=== PATIENT | male | born 1950 | race Caucasian/White ===

== ENCOUNTER 2022-04-11 10:59 | Emergency (ER) | payer MEDICARE, MEDICAID ==
[~2022-04-11] VITALS: Ht 167.6 cm; Wt 60.9 kg
[2022-04-11 11:57] LABS: BASOPHILS # (AUTO) 0.1 X10'3 (0-0.2); BASOPHILS % (AUTO) 0.9 % (0-1); EOSINOPHILS # (AUTO) 0.1 X10'3 (0-0.9); EOSINOPHILS % (AUTO) 1.1 % (0-6); LYMPHOCYTES # (AUTO) 1.8 X10'3 (1.1-4.8); LYMPHOCYTES % (AUTO) 33.6 % (21-51); MEAN CORPUSCULAR HGB CONC 33.2 g/dL (33.0-36.5); MEAN CORPUSCULAR VOLUME 93.3 FL (78-98); MEAN PLATELET VOLUME 7.9 FL (7.4-10.4); MONOCYTES # (AUTO) 0.4 X10'3 (0-0.9); MONOCYTES % (AUTO) 8.2 % (2-12); NEUTROPHILS % (AUTO) 56.2 % (42-75); PLATELET COUNT 250 X10'3 (140-440); RED BLOOD COUNT 4.18 X10'6 (4.70-6.10); RED CELL DISTRIBUTION WIDTH 15.2 % (11.5-14.5); WHITE BLOOD COUNT 5.4 X10'3 (4.5-11.0)
[2022-04-11 11:57] LABS: CLARITY,URINE CLEAR (Clear); COLOR,URINE STRAW (Yellow); GLUCOSE, URINE NEGATIVE (Neg); KETONES,URINE NEGATIVE (Neg); LEUKOCYTE ESTERASE ,URINE NEGATIVE (Neg); NITRITES, URINE NEGATIVE (Neg); OCCULT BLOOD,URINE NEGATIVE (Neg); PH,URINE 5.5 (4.8-8.0); PROTEIN,URINE NEGATIVE (Neg); UA COLLECTION TYPE NON-SPECIFIED; UROBILINOGEN,URINE 0.2 E.U/dL (0.2-1.0)
[2022-04-11 12:09] LABS: URINE AMPHETAMINE SCREEN NEGATIVE (Neg); URINE BARBITUATE SCREEN NEGATIVE (Neg); URINE BENZODIAZEPINES SCREEN NEGATIVE (Neg); URINE CANNABINOID SCREEN NEGATIVE (Neg); URINE COCAINE SCREEN NEGATIVE (Neg); URINE METHADONE SCREEN NEGATIVE (Neg); URINE OPIATE SCREEN NEGATIVE (Neg); URINE PHENCYCLIDINE SCREEN NEGATIVE (Neg)
[2022-04-11 12:10] LABS: ALANINE AMINOTRANSFERASE 27 U/L (12-78); ALBUMIN 3.9 G/DL (3.4-5.0); ALBUMIN/GLOBULIN RATIO 1.1 (1.1-1.5); ALKALINE PHOSPHATASE 67 IU/L (46-116); ANION GAP 8 (8-16); ASPARTATE AMINO TRANSFERASE 39 U/L (10-37); BILIRUBIN,TOTAL 0.4 MG/DL (0.1-1.0); BLOOD UREA NITROGEN 19 MG/DL (7-18); BUN/CREATININE RATIO 15.3 (5.4-32.0); CALCIUM 9.3 MG/DL (8.5-10.1); CHLORIDE 104 MMOL/L (99-107); CREATININE 1.24 MG/DL (0.60-1.10); GLUCOSE 122 MG/DL (70-104); SODIUM 141 MMOL/L (135-145); TOTAL CARBON DIOXIDE 28.7 MMOL/L (24-32); TOTAL PROTEIN 7.3 G/DL (6.4-8.2); eGFR 58 ML/MIN
[2022-04-11 12:23] LABS: ETHANOL < 0.010 GM/DL (0.0-0.010)
--- NOTE | 2022-04-11 12:25 | NUR ---
Pt. ambulated over from the main ER accompanied by nurse.
--- NOTE | 2022-04-11 12:55 | NUR ---
Pt. reports he is diabetic, however he does not take medications or check his blood sugars. Pt. reports his diabetes is diet controlled at this time, pt. ordered a carbohydrate controlled diet.
--- NOTE | 2022-04-11 13:11 | NUR ---
tech faxed pt packet to [facility]
--- NOTE | 2022-04-11 14:31 | NUR ---
Pt. is laying in bed with his eyes open at this time.
--- NOTE | 2022-04-11 16:18 | NUR ---
[facility] at bedside talking to pt. at this time.
[2022-04-11] MEDS ORDERED: LISI40TA13 PO (16:33)
[2022-04-11] MEDS ORDERED: ASPI-1265 PO (16:33)
[2022-04-11] MEDS ORDERED: MULT-1085 PO (16:33)
[2022-04-11] MEDS ORDERED: ATOR40TA71 PO (16:33)
[2022-04-11] MEDS ORDERED: ZIPR40CA2 PO (16:33)
[2022-04-11] MEDS ORDERED: BUPR100T13 PO (16:33)
[2022-04-11] MEDS ORDERED: BICT1TAB PO (16:33)
[2022-04-11] MEDS ORDERED: GABA300C PO (16:33)
[2022-04-11] MEDS ORDERED: LAMO200T2 PO (16:33)
--- NOTE | 2022-04-11 17:52 | NUR ---
Pt. was moved to room number 20, he is sitting up eating dinner at this time.
--- NOTE | 2022-04-11 18:30 | NUR ---
This patient is resting quietly in bed. He has eaten his dinner. Patient is in view from the nurses station.
[2022-04-11] MEDS: gabapentin 300mg capsule PO SCH (20:57)
[2022-04-11] MEDS ORDERED: atorvastatin 20mg tablet PO SCH (21:00)
--- NOTE | 2022-04-11 21:14 | NUR ---
Patient was compliant with nightime medications, he returns to sleep.
--- NOTE | 2022-04-11 21:24 | NUR ---
Patient ambulated to bathroom to void. Normal gait. Back to bed to sleep.
--- NOTE | 2022-04-11 22:31 | NUR ---
Patient is sleeping quietly on his right side in bed. No distress.
--- NOTE | 2022-04-11 23:57 | NUR ---
Patient sleeps quietly, no distress.
--- NOTE | 2022-04-12 01:08 | NUR ---
Patient is sleeping in a supine position with knees flexed. No distress.
--- NOTE | 2022-04-12 03:13 | NUR ---
Patient is sleeping supine in bed. No distress.
--- NOTE | 2022-04-12 04:06 | NUR ---
Patient is sleeping, knees flexed. No distress.
--- NOTE | 2022-04-12 05:18 | NUR ---
Patient exhibited a sudden verbal outburst. He states he wants coffee now. And something to read. The patient is labile. This global technical writer attempted to redirect patients labile behavior. The patient told this global technical writer to go away!
--- NOTE | 2022-04-12 07:00 | NUR ---
Pt is awake sitting up in bed. Pt is calm. Coffee refill was given.
--- NOTE | 2022-04-12 07:54 | NUR ---
Pt refused breakfast tray, stating "It's cold." Pt still declined when offered to heat food up. Pt states he doesn't drink milk either.
[2022-04-12] MEDS ORDERED: lamoTRIgine 100mg tablet PO SCH (08:00)
[2022-04-12] MEDS ORDERED: lisinopril 20mg tablet PO SCH (08:00)
[2022-04-12] MEDS ORDERED: buPROPion 100mg tablet PO SCH (08:00)
[2022-04-12] MEDS ORDERED: multivitamins, therapeutics tablet PO SCH (08:00)
[2022-04-12] MEDS ORDERED: ziprasidone 20mg capsule PO SCH (08:00)
[2022-04-12] MEDS ORDERED: aspirin 81mg tab.chew PO SCH (08:00)
[2022-04-12] MEDS: gabapentin 300mg capsule PO SCH (08:32)
--- NOTE | 2022-04-12 09:30 | NUR ---
One to one with patient to assess suicidal ideation. Pt presents tearful and depressed. Pt is tearful during assessment. Pt's mood is "bored and lonely." Pt denies SI. Pt states "I never had a plan, it was just random thoughts." Pt states "I don't want to , but I don't want to be here either." "I feel pissed and overwhelmed." Pt states "I can't bear the suffering in the world anymore." "I feel responsible and no one is fixing it." Pt has not been on his medication for 3-4 weeks. Pt denies A/VH. No prior history of SA or PHF placements.
--- NOTE | 2022-04-12 10:01 | NUR ---
Spoke with Anthony CAMPBELL to reduce Lamictal to 50mg daily.
--- NOTE | 2022-04-12 10:05 | NUR ---
Pt was given a breakfast burrito and ate 50% if it.
--- NOTE | 2022-04-12 11:00 | NUR ---
Pt resting comfortably, rr even and unlabored.
--- NOTE | 2022-04-12 12:30 | NUR ---
Pt ate about 75% of his lunch. Pt is awaiting transfer to [facility].
--- NOTE | 2022-04-12 13:34 | NUR ---
Pt's friends are at bedside. Brought in HIV medication for transfer to [facility].
--- NOTE | 2022-04-12 13:36 | NUR ---
tech had registration pull pt valuables out of the safe to go w/ pt to receiving facilty. pt clothes given to pt, all other pt belongings given to cdl a driver to transport.
--- NOTE | 2022-04-12 13:39 | NUR ---
Pt's friends at bedside, conversation appropriate. Pt bright affect.
[2022-04-12 15:05] VITALS: BP 129/71
[2022-04-13] MEDS ORDERED: lamoTRIgine 25mg tablet PO SCH (08:00)
== END 2022-04-12 14:10 ==
LOC: ER 11:00
DX: F33.2 Major depressive disorder, recurrent severe without psychotic features (principal); Z20.822 Contact with and (suspected) exposure to COVID-19; R45.851 Suicidal ideations; Z88.6 Allergy status to analgesic agent
CPT/HCPCS: 36415; 80053; 80305; 80320; 81003; 84443; 85025; 87811; 99285